=== PATIENT | female | born 1945 | race Caucasian/White ===

== ENCOUNTER → 2016-07-26 | Outpatient (CLI) | payer OTHER ==
[~2016-07-26] MED LIST: ATOR20TA9 PO; FAMO-79 PO; FURO-93 PO; GABA300C10 PO; OMEP40CA6 PO; POTA10CA PO
== END | disposition home or self-care (01) ==
LOC: CFH 08:23
PROVIDERS: ATTEND Family Medicine
DX: Z12.31 Encounter for screening mammogram for malignant neoplasm of breast (principal); N95.8 Other specified menopausal and perimenopausal disorders; M17.11 Unilateral primary osteoarthritis, right knee; M25.761 Osteophyte, right knee; Z92.25 Personal history of immunosuppression therapy
CPT/HCPCS: 73564; 77080; G0202

== ENCOUNTER → 2016-08-09 | Outpatient (CLI) | payer OTHER | END | disposition home or self-care (01) | LOC: CFH 06:57 | PROVIDERS: ATTEND Family Medicine | DX: M25.561 Pain in right knee (principal) ==

== ENCOUNTER → 2017-12-11 | Outpatient (CLI) | payer OTHER | END | disposition home or self-care (01) | LOC: CARD 13:46 | PROVIDERS: ATTEND Family Medicine | DX: J44.9 Chronic obstructive pulmonary disease, unspecified (principal); R06.02 Shortness of breath | CPT/HCPCS: 94060; 94726; 94729 ==

== ENCOUNTER → 2018-06-12 | Outpatient (CLI) | payer MEDICARE ==
[~2018-06-12] MED LIST changes: +ATOR20TA37 PO; -ATOR20TA9 PO; +OMNIPAQUE 350 MG/ML, 100ML BOTTLE ONE
== END | disposition home or self-care (01) ==
LOC: CFH 08:32
PROVIDERS: ATTEND Family Medicine
DX: E04.1 Nontoxic single thyroid nodule (principal); K57.30 Diverticulosis of large intestine without perforation or abscess without bleeding; K44.9 Diaphragmatic hernia without obstruction or gangrene; M47.816 Spondylosis without myelopathy or radiculopathy, lumbar region
CPT/HCPCS: 71260; 74177; 82565; Q9967

== ENCOUNTER 2018-11-01 14:01 | Outpatient (CLI) | payer MEDICARE | END 2018-11-01 23:59 | disposition home or self-care (01) | LOC: CFH 14:01 | PROVIDERS: ATTEND Family Medicine | DX: S33.140A Subluxation of L4/L5 lumbar vertebra, initial encounter (principal); M47.817 Spondylosis without myelopathy or radiculopathy, lumbosacral region; X58.XXXA Exposure to other specified factors, initial encounter; Y93.89 Activity, other specified; Y92.89 Other specified places as the place of occurrence of the external cause; Y99.8 Other external cause status | CPT/HCPCS: 72110 ==

== ENCOUNTER → 2019-10-08 | Outpatient (CLI) | payer MEDICARE ==
[~2019-10-08] MED LIST changes: +OMEP40CA42 PO; -OMEP40CA6 PO; -OMNIPAQUE 350 MG/ML, 100ML BOTTLE ONE
== END | disposition home or self-care (01) ==
LOC: STAR 13:19
PROVIDERS: ATTEND Family Medicine
DX: Z01.810 Encounter for preprocedural cardiovascular examination (principal); I25.2 Old myocardial infarction
CPT/HCPCS: 93005